=== PATIENT | male | born 1990 | race African-American/Black ===

== ENCOUNTER 2022-04-03 21:06 | Emergency (ER) | payer SELFPAY ==
[2022-04-03] MEDS ORDERED: Dexamethasone 4 MG TAB ONE (21:28)
[2022-04-03] MEDS ORDERED: AMOXicillin 250 MG CAP ONE (21:28)
== END 2022-04-03 21:35 | disposition home or self-care (01) ==
LOC: BURERS 21:06
DX: J02.9 Acute pharyngitis, unspecified (principal); F17.210 Nicotine dependence, cigarettes, uncomplicated; F17.290 Nicotine dependence, other tobacco product, uncomplicated
CPT/HCPCS: 99283; J8540